=== PATIENT | male | born 1955 | race Caucasian/White ===

== ENCOUNTER → 2016-11-14 | Outpatient (CLI) | payer BC | LOC: SUN.DIA 08:50 | DX: E11.65 Type 2 diabetes mellitus with hyperglycemia (principal); Z79.4 Long term (current) use of insulin; Z79.84 Long term (current) use of oral hypoglycemic drugs; E66.9 Obesity, unspecified; Z68.29 Body mass index [BMI] 29.0-29.9, adult; Z71.3 Dietary counseling and surveillance | CPT/HCPCS: G0108 ==

== ENCOUNTER 2021-10-27 13:30 | Outpatient (CLI) | payer MEDICARE, OTHER ==
[~2021-10-27] VITALS: Ht 188 cm; Wt 102.0 kg
[2021-10-27] VITALS (8 sets, daily range): BP systolic 109–129; BP diastolic 53–74; PULSE 65–72; TEMP 97
--- NOTE | 2021-10-27 15:30 | NUR ---
INT DC'd with catheter intact. Pt tolerated infusion and 1 hr obs period without issue. He is escorted out to ED entrance with steady gait.
== END 2021-10-27 15:30 | disposition home or self-care (01) ==
LOC: EUO 13:30
DX: U07.1 COVID-19 (principal)
CPT/HCPCS: M0245